=== PATIENT | male | born 1970 | race Native Hawaiian/Other Pacific Islander ===

== ENCOUNTER 2018-07-26 12:53 | Emergency (ER) | payer SELFPAY ==
--- NOTE | 2018-07-26 13:22 | Emergency Department Report ---
- HPI History of Present Illness: rash to the groin, testicles legs, buttcheeks, arms that began two weeks ago no one else with the same rash no penile drainage itching tried hydrocortisone, benadryl, aveno, blue star ointment no drainage from bites no PMHx, no medications on a daily (+) smoke no drug use, no drinking MSE screening note: Focused history and physical exam performed. <CHEYANNE MURRIETA - Last Filed: 07/26/18 13:18> - ROS Review of Systems: Unfortunately, Mr. Jaquez left before I was able to examine him. MSE screening note: Focused history and physical exam performed. Due to findings the following was ordered: <ANKITA LAVES - Last Filed: 07/26/18 15:52> Chief Complaint: Skin Rash Stated Complaint: BITE TRAORE ALL OVER BODY Time Seen by Provider: 07/26/18 13:17 ED Disposition for MSE <CHEYANNE MURRIETA - Last Filed: 07/26/18 13:18> <ANKITA ALVES - Last Filed: 07/26/18 15:52> Condition: Stable
== END 2018-07-26 15:42 ==
LOC: ED 12:53
DX: L29.9 Pruritus, unspecified (principal); Z53.21 Procedure and treatment not carried out due to patient leaving prior to being seen by health care provider

== ENCOUNTER 2018-09-01 07:51 | Emergency (ER) | payer SELFPAY ==
[2018-09-01 07:56] VITALS: BP 151/105
--- NOTE | 2018-09-01 09:19 | Emergency Department Report ---
ED General Adult HPI - General Chief complaint: Skin Rash Stated complaint: BITINGS ALL OVER BODY Time Seen by Provider: 09/01/18 08:47 Source: patient Mode of arrival: Ambulatory Limitations: No Limitations - History of Present Illness Initial comments: patient presents to the ED with a complaint of a rash started approximately a week ago. Patient states the rashes on his arms, legs, and trunk. Describes the rash as being very itchy. 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 She has no other complaints. -: Sudden Severity scale (0 -10): 0 Improves with: none Worsens with: none Associated Symptoms: denies other symptoms Treatments Prior to Arrival: none - Related Data Previous Rx's Medication Instructions Recorded Last Taken Type Hydrocortisone 1% [Hydrocortisone 1 applicatio TP TID #1 tube 09/01/18 Unknown Rx 1% CREAM] Permethrin 5% [Acticin 5% CREAM] 1 applicatio TP ONCE #2 tube 09/01/18 Unknown Rx Prednisone [predniSONE 10 mg 10 mg PO .TAPER #1 tab.ds.pk 09/01/18 Unknown Rx (6-Day Pack, 21 Tabs)] Allergies Allergy/AdvReac Type Severity Reaction Status Date / Time No Known Allergies Allergy Verified 09/01/18 07:53 ED Review of Systems ROS: Stated complaint: BITINGS ALL OVER BODY Other details as noted in HPI Constitutional: denies: chills, fever Eyes: denies: eye pain, eye discharge, vision change ENT: denies: ear pain, throat pain Respiratory: denies: cough, shortness of breath, wheezing Cardiovascular: denies: chest pain, palpitations Endocrine: no symptoms reported Gastrointestinal: denies: abdominal pain, nausea, diarrhea Genitourinary: denies: urgency, dysuria Musculoskeletal: denies: back pain, joint swelling, arthralgia Skin: rash. denies: lesions Neurological: denies: headache, weakness, paresthesias Psychiatric: denies: anxiety, depression Hematological/Lymphatic: denies: easy bleeding, easy bruising ED Past Medical Hx - Past Medical History Previous Medical History?: No - Surgical History Additional Surgical History: hernia - Social History Smoking Status: Current Every Day Smoker Substance Use Type: None - Medications Home Medications: Home Medications Medication Instructions Recorded Confirmed Last Taken Type Hydrocortisone 1% [Hydrocortisone 1 applicatio TP TID #1 tube 09/01/18 Unknown Rx 1% CREAM] Permethrin 5% [Acticin 5% CREAM] 1 applicatio TP ONCE #2 tube 09/01/18 Unknown Rx Prednisone [predniSONE 10 mg 10 mg PO .TAPER #1 tab.ds.pk 09/01/18 Unknown Rx (6-Day Pack, 21 Tabs)] ED Physical Exam - General Limitations: No Limitations General appearance: alert, in no apparent distress - Head Head exam: Present: atraumatic, normocephalic - Eye Eye exam: Present: normal appearance - ENT ENT exam: Present: mucous membranes moist - Neck Neck exam: Present: normal inspection - Respiratory Respiratory exam: Present: normal lung sounds bilaterally. Absent: respiratory distress - Cardiovascular Cardiovascular Exam: Present: regular rate, normal rhythm. Absent: systolic murmur, diastolic murmur, rubs, gallop - Rectal Rectal exam: Present: deferred - Neurological Exam Neurological exam: Present: alert, oriented X3, CN II-XII intact. Absent: motor sensory deficit - Psychiatric Psychiatric exam: Present: normal affect, normal mood - Skin Skin exam: Present: warm, dry, intact, normal color, rash, other (raised lesions of the extremities and trunk consistent with bed bugs) ED Course Vital Signs 09/01/18 07:53 Temperature 98.3 F Pulse Rate 100 H Respiratory 18 Rate Blood Pressure 151/105 O2 Sat by Pulse 99 Oximetry ED Medical Decision Making - Medical Decision Making Plan discussed with patient Critical care attestation.: If time is entered above; I have spent that time in minutes in the direct care of this critically ill patient, excluding procedure time. ED Disposition Clinical Impression: Rash Disposition: DC-01 TO HOME OR SELFCARE Is pt being admited?: No Does the pt Need Aspirin: No Condition: Stable Instructions: Acute Rash (ED) Additional Instructions: return if worse Prescriptions: Permethrin 5% [Acticin 5% CREAM] 1 applicatio TP ONCE #2 tube Hydrocortisone 1% [Hydrocortisone 1% CREAM] 1 applicatio TP TID #1 tube Prednisone [predniSONE 10 mg (6-Day Pack, 21 Tabs)] 10 mg PO .TAPER #1 tab.ds.pk Referrals: TROY KHALILMUSKEGON MD CHUY [Primary Care Provider] - 3-5 Days [facility] [Provider Group] - 3-5 Days [facility] [Provider Group] - 3-5 Days Time of Disposition: 09:23
== END 2018-09-01 09:32 | disposition home or self-care (01) ==
LOC: ED 07:51
DX: R21 Rash and other nonspecific skin eruption (principal); F17.200 Nicotine dependence, unspecified, uncomplicated
CPT/HCPCS: 99282

== ENCOUNTER 2019-01-30 23:59 | Emergency (ER) | payer SELFPAY ==
[2019-01-31 00:04] VITALS: BP 162/90
[2019-01-31] MEDS ORDERED: FUL-GLO OP ONE ×2 (00:14→00:17)
--- NOTE | 2019-01-31 00:30 | Emergency Department Report ---
ED Eye Problem HPI - General Chief complaint: Eye Problems Stated complaint: OBJECT IN L EYE Time Seen by Provider: 01/31/19 00:23 Source: patient Mode of arrival: Ambulatory Limitations: No Limitations - History of Present Illness Initial comments: Mr. Jaquez is a healthy 48-year-old without significant past medical history presents with left eye irritation. He has a foreign body sensation left eye. He is exposed to the debris. He works in construction. Severe irritation to the left eye. He feels as if form bodies under his left upper eyelid. Has discharge. Has redness left eye. Intact vision. No known trauma. He wears goggles intermittently at work. He does not wear corrective lenses. chief complaint: eye redness, foreign body -: Gradual, This evening Location: left eye Place: home, work If Injury: none Eye Symptoms: burning, redness, foreign body sensation, discharge Severity: mild Consistency: constant Context: other (exposure to debris at work) Associated Symptoms: none Treatments Prior to Arrival: irrigated eye, OTC eye drops - Related Data Previous Rx's Medication Instructions Recorded Last Taken Type Hydrocortisone 1% [Hydrocortisone 1 applicatio TP TID #1 tube 09/01/18 Unknown Rx 1% CREAM] Permethrin 5% [Acticin 5% CREAM] 1 applicatio TP ONCE #2 tube 09/01/18 Unknown Rx Prednisone [predniSONE 10 mg 10 mg PO .TAPER #1 tab.ds.pk 09/01/18 Unknown Rx (6-Day Pack, 21 Tabs)] Polymyxin B Sulf/Trimethoprim 1 drop OP Q3H 7 Days #1 bottle 01/31/19 Unknown Rx [Polytrim Eye Drops] Allergies Allergy/AdvReac Type Severity Reaction Status Date / Time No Known Allergies Allergy Verified 09/01/18 07:53 ED Review of Systems ROS: Stated complaint: OBJECT IN L EYE Other details as noted in HPI Constitutional: denies: malaise Eyes: eye discharge ENT: denies: congestion Respiratory: denies: cough ED Past Medical Hx - Past Medical History Previous Medical History?: No - Surgical History Past Surgical History?: Yes Additional Surgical History: hernia - Social History Smoking Status: Current Every Day Smoker Substance Use Type: None - Medications Home Medications: Home Medications Medication Instructions Recorded Confirmed Last Taken Type Hydrocortisone 1% [Hydrocortisone 1 applicatio TP TID #1 tube 09/01/18 Unknown Rx 1% CREAM] Permethrin 5% [Acticin 5% CREAM] 1 applicatio TP ONCE #2 tube 09/01/18 Unknown Rx Prednisone [predniSONE 10 mg 10 mg PO .TAPER #1 tab.ds.pk 09/01/18 Unknown Rx (6-Day Pack, 21 Tabs)] Polymyxin B Sulf/Trimethoprim 1 drop OP Q3H 7 Days #1 bottle 01/31/19 Unknown Rx [Polytrim Eye Drops] ED Physical Exam - General Limitations: No Limitations General appearance: alert, in no apparent distress - Eye Eye exam: Present: conjunctival injection. Absent: periorbital swelling, periorbital tenderness - Expanded Eye Exam Expanded Eyelids: Normal Inspection: Left Pupils: Regular, Round: Left, Reactive: Left Sclera/Conjunctival: Injection: Left, Exudate: Left Anterior chamber: Normal Inspection: Left Posterior chamber: Deferred: Left ED Course Vital Signs 01/31/19 00:02 Temperature 98.2 F Pulse Rate 91 H Respiratory 18 Rate Blood Pressure 162/90 O2 Sat by Pulse 97 Oximetry ED Medical Decision Making - Medical Decision Making Mr. Jaquez received tetracaine for local anesthesia which provided immediate relief. No fluorescein uptake to indicate corneal abrasion. I inverted the eyelid, residue was seen. Grass-like foreign body removed. I irrigated the eye with sterile irrigation solution. I have prescribed antibiotic eyedrops for acute conjunctivitis. He had yellow discharge present medial canthus. 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 ED Disposition Clinical Impression: Acute conjunctivitis of left eye, Foreign body of left eye Disposition: DC-01 TO HOME OR SELFCARE Is pt being admited?: No Does the pt Need Aspirin: No Condition: Stable Instructions: Conjunctivitis (ED), Eye Foreign Body (ED) Prescriptions: Polymyxin B Sulf/Trimethoprim [Polytrim Eye Drops] 1 drop OP Q3H 7 Days #1 bottle Referrals: FERDINAND AMANDA MD [Staff Physician] - 2-3 Days
== END 2019-01-31 00:44 | disposition home or self-care (01) ==
LOC: ED 23:59
DX: H10.32 Unspecified acute conjunctivitis, left eye (principal); F17.200 Nicotine dependence, unspecified, uncomplicated; Z79.899 Other long term (current) drug therapy
CPT/HCPCS: 99282